=== PATIENT | male | born 1975 | race Caucasian/White ===

== ENCOUNTER 2021-05-14 12:06 | Emergency (ER) | payer BC ==
[~2021-05-14] VITALS: Ht 172.7 cm; Wt 59.9 kg
[2021-05-14 12:18] VITALS: BP 138/74
[2021-05-14] MEDS ORDERED: ACETAMINOPHEN 500 MG TABLET PO ONE (13:00)
[2021-05-14] MEDS ORDERED: IBUPROFEN 200 MG TABLET. PO ONE (13:00)
[2021-05-14 13:17] LABS: INFLUENZA A PATIENT NEGATIVE (NEGATIVE); INFLUENZA B PATIENT NEGATIVE (NEGATIVE)
--- NOTE | 2021-05-14 13:21 | RAD ---
EXAM: CHEST ONE VIEW. HISTORY: Cough. COMPARISON: None. FINDINGS: A frontal view of the chest is obtained. There are no confluent infiltrates. There are calcified granulomas on the left. There is no pneumotho rax or pleural effusion. The heart is not enlarged. IMPRESSION: 1. No confluent infiltrates. Electronically signed by: Al Quijano MD (05/14/2021 1:19 PM) [id number]
--- NOTE | 2021-05-14 13:32 | PHYS DOC ---
Past Medical History Past Medical History: No Pertinent History Past Surgical History: No Surgical History Smoking Status: Current Every Day Smoker Alcohol Use: Heavy General Adult EDM: Chief Complaint: HEADACHE HPI: HPI: Patient is a 45 year old male who presented to ER for evaluation of body ache, fever and chills, headache. Patient says his symptoms just started today while he was at work. Patient works at [employer]. Patient said there was many employee there tested positive for COVID-19 recently. Patient said he was vaccinated for COVID-19 twice. Patient denies any trouble breathing, no chest pain. Patient had nonproductive cough. Patient denies any abdominal pain, no nausea vomiting Review of Systems: Review of Systems: Constitutional: Positive for fever or chills. [] Eyes: Denies change in visual acuity. [] HENT: Denies nasal congestion or sore throat. [] Respiratory: Positive for cough, no trouble breathing.] Cardiovascular: Denies chest pain or edema. [] GI: Denies abdominal pain, nausea, vomiting, bloody stools or diarrhea. [] : Denies dysuria. [] Musculoskeletal: Positive for body aches, joint pain Integument: Denies rash. [] Neurologic: Denies headache, focal weakness or sensory changes. [] Endocrine: Denies polyuria or polydipsia. [] Lymphatic: Denies swollen glands. [] Psychiatric: Denies depression or anxiety. [] Heart Score: C/O Chest Pain: N/A Risk Factors: Risk Factors: DM, Current or recent (<one month) smoker, HTN, HLP, family history of CAD, obesity. Risk Scores: Score 0 - 3: 2.5% MACE over next 6 weeks - Discharge Home Score 4 - 6: 20.3% MACE over next 6 weeks - Admit for Clinical Observation Score 7 - 10: 72.7% MACE over next 6 weeks - Early Invasive Strategies Current Medications: Current Medications Medications (Trade) Dose Ordered Sig/Gregoria Start Time Stop Time Status Last Admin Dose Admin Acetaminophen (Tylenol) 1,000 mg 1X ONCE 05/14/21 13:00 05/14/21 13:01 DC 05/14/21 12:50 1,000 MG Ibuprofen (Motrin) 600 mg 1X ONCE 05/14/21 13:00 05/14/21 13:01 DC 05/14/21 12:51 600 MG Allergies: Allergies: Allergies Coded Allergies Type Severity Reaction Last Updated Verified No Known Drug Allergies 05/14/21 No Physical Exam: PE: Constitutional: Well developed, well nourished, no acute distress, non-toxic appearance. [] HENT: Normocephalic, atraumatic, bilateral external ears normal, oropharynx moist, no oral exudates, nose normal. [] Eyes: PERRLA, EOMI, conjunctiva normal, no discharge. [] Neck: Normal range of motion, no tenderness, supple, no stridor. No neck stiffness, no meningeal signs Cardiovascular:Heart rate regular rhythm, no murmur [] Lungs & Thorax: Bilateral breath sounds clear to auscultation [] Abdomen: Bowel sounds normal, soft, no tenderness, no masses, no pulsatile masses. [] Skin: Warm, dry, no erythema, no rash. [] Back: No tenderness, no CVA tenderness. [] Extremities: No tenderness, no cyanosis, no clubbing, ROM intact, no edema. [] Neurologic: Alert and oriented X 3, normal motor function, normal sensory function, no focal deficits noted. [] Psychologic: Affect normal, judgement normal, mood normal. [] Current Patient Data: Labs: Laboratory Tests Test 05/14/21 12:45 Influenza Type A Antigen Negative (NEGATIVE) Influenza Type B Antigen Negative (NEGATIVE) SARS-CoV-2 Antigen (Rapid) Positive (NEGATIVE) *A Vital Signs: Vital Signs Date Time Temp Pulse Resp B/P (MAP) Pulse Ox O2 Delivery O2 Flow Rate FiO2 05/14/21 12:18 98.4 90 20 138/74 (95) 100 Room Air 98.4 EKG: EKG: [] Radiology/Procedures: Radiology/Procedures: [][facility] [address] [place] [address] IMAGING REPORT Signed PATIENT: AGGIE DUKES: [id number] : 1975 LOCATION: ER AGE: 45 SEX: M EXAM STATUS: REG ER ORD. PHYSICIAN: MARGARITA HAHN DO REASON: cough PROCEDURE: CHEST AP ONLY EXAM: CHEST ONE VIEW. HISTORY: Cough. COMPARISON: None. FINDINGS: A frontal view of the chest is obtained. There are no confluent infiltrates. There are calcified granulomas on the left. There is no pneumothorax or pleural effusion. The heart is not enlarged. IMPRESSION: 1. No confluent infiltrates. Electronically signed by: Al Quijano MD (05/14/2021 1:19 PM) [id number] DICTATED and SIGNED BY: MILTON QUIJANO MD DATE: 05/14/21 [id number] Course & Med Decision Making: Course & Med Decision Making Pertinent Labs and Imaging studies reviewed. (See chart for details) Patient is a 45-year-old male who presented to ER due to cough, fever and chills, body ache, headache, back pain. Patient was tested positive for COVID- 19. Patient was in no acute distress, his vital signs was reassuring. Patient be discharged home with isolation instruction. Dragon Disclaimer: Dragon Disclaimer: This electronic medical record was generated, in whole or in part, using a voice recognition dictation system. Departure Departure Impression: Primary Impression: COVID-19 virus infection Disposition: 01 HOME / SELF CARE / HOMELESS Condition: STABLE Referrals: NO PCP (PCP) fOLLOW UP WITH YOUR DOCTOR NEEDED. Please follow up with [facility] this week. [address], [address] [place] [address] Phone number: [phone] Patient Instructions: Viral Syndrome Additional Instructions: You have been tested POSITIVE FOR COVID-19 INFECTION TODAY. It is an infection caused by a new type of coronavirus. COVID-19 will cause cold-like or mild flu symptoms in most. It can cause more severe symptoms like problems breathing in some. There is no treatment for COVID-19. The body will clear the infection over time. Self-care will help to ease discomfort. Steps to Take: Self-Care Rest as needed. Healthy habits may help you feel better. Steps include: Choose healthy foods including fruits and vegetables. Drink water throughout the day. Get plenty of sleep each night. If you smoke, try to quit. It may ease breathing. Avoid alcohol. Keep Others Healthy The virus can spread to others. Droplets are released every time you sneeze or cough. The droplets can get into the mouth, nose, or eyes of people near you and lead to infection. To lower the chances of spreading COVID-19 to others: Stay at home until your doctor has said it is safe to leave. If you tested positive this will mean staying isolated until both of the following are true: At least 7 days have passed since the start of illness. You are free of fever for at least 72 hours without the use of medicine. During this time: - Avoid public areas, events, or transportation. Do not return to work or school until your doctor has said it is safe to do so. - Call ahead if you need to go to a medical center. Let them know you may have COVID-19. It will help them guide you where to go. They may also ask you to wear a facemask when you come to the office. - If you call for emergency medical services, let them know you may have COVID- 19. While at home: - Try to avoid close contact with others. Stay about 6 feet away. - If possible, spend most of your time in a separate room from others. - Use a face mask if you will be in close contact with others such as sharing a room or vehicle. - Have someone wipe down common surfaces in the home. Use household cop examiner every day on areas like doorknobs, counters, or sinks. - Cough or sneeze into a tissue. Throw the tissue away right after use. If a tissue is not available, cough or sneeze into your elbow. - Wash your hands often. Wash them after sneezing or coughing. Use soap and water and wash for at least 20 seconds. Alcohol based hand beer coil cleaner can be used if soap and water is not available. - Do not prepare food for others. Avoid sharing personal items like forks, spoons, or toothbrushes. - Avoid close contact with pets while you are sick. There is no evidence of the virus passing to pets. This is a safety step until more is known about this virus. Isolation can be frustrating. Social interaction can help. Keep in touch with friends and family through phone and tech options. You can still interact with others in your home, just keep a safe distance of about 6 feet. Follow-up: Your doctors office will check in with you to see if there are any changes in your health. You may be asked to keep track of symptoms to share with them. They will also let you know when you are clear to be in public again. Problems to Look Out For: Contact your doctor if your recovery is not going as you expect. Get emergency care if you have problems such as: - Trouble breathing - Nonstop chest pain or pressure - Changes in awareness, confusion, or problems waking - Lips or face have bluish color - Worsening of symptoms If you think you have an emergency, call for emergency medical services right away. As taken from [facility] MARGARITA HAHN DO May 14, 2021 13:32
== END 2021-05-14 13:46 | disposition home or self-care (01) ==
LOC: ER 12:06
DX: U07.1 COVID-19 (principal); F17.200 Nicotine dependence, unspecified, uncomplicated; F10.20 Alcohol dependence, uncomplicated; Y90.9 Presence of alcohol in blood, level not specified
CPT/HCPCS: 71045; 87426; 87804; 99284